=== PATIENT | male | born 1975 | race Caucasian/White ===

== ENCOUNTER 2022-04-09 22:05 | Emergency (ER) | payer MEDICAID ==
[~2022-04-09] VITALS: Ht 185.4 cm; Wt 84.0 kg
[2022-04-09 22:12] VITALS: BP 133/86
[2022-04-09] MEDS: ACETAMINOPHEN 325MG TABLET PO STA (23:53)
[2022-04-10] MEDS ORDERED: NAPR-681 PO (00:49)
[2022-04-10] MEDS: LIDOCAINE HCL/PF 1% 10 MG/ML 5ML VIAL INFIL ONE (00:58)
[2022-04-10] MEDS: BACITRACIN ZINC OINT UDPKT TOP ONE (01:06)
[2022-04-10] MEDS ORDERED: BACITRACIN ZINC OINT UDPKT TOP NR (01:15)
== END 2022-04-10 01:13 | disposition home or self-care (01) ==
LOC: ER 22:05
DX: S01.01XA Laceration without foreign body of scalp, initial encounter (principal); W18.39XA Other fall on same level, initial encounter; Y93.89 Activity, other specified; Y92.89 Other specified places as the place of occurrence of the external cause; Y99.8 Other external cause status
CPT/HCPCS: 70450; 99284; J3490